=== PATIENT | male | born 1990 | race Caucasian/White ===

== ENCOUNTER 2016-12-24 22:15 | Emergency (ER) | payer OTHER ==
[~2016-12-24] VITALS: Ht 170.2 cm; Wt 70.0 kg
[2016-12-24 22:18] VITALS: BP 134/78; PULSE 68; RESP 16; TEMP 96.4; O2SAT 99
--- NOTE | 2016-12-24 23:01 | RADRPT ---
EXAM DATE/TIME: 12/24/2016 22:49 [place] COMPARISON: No previous studies available for comparison. INDICATIONS : Left anterior lateral chest pain, injured moving boxes MEDICAL HISTORY : None. SURGICAL HISTORY : None. ENCOUNTER: Initial ACUITY: 4 - 6 days PAIN SCORE: 4/10 LOCATION: Left chest FINDINGS: A single view of the chest demonstrates the lungs to be symmetrically aerated without evidence of mas s, infiltrate or effusion. No evidence of pneumothorax. The cardiomediastinal contours are unremark able. Osseous structures are intact.CONCLUSION: The lungs are clear. Lonny Fontenot MD on December 24, 2016 at 22:59 Board Certified Radiologist. This report was verified electronically.
[2016-12-25 00:30] VITALS: BP 126/60; PULSE 60; RESP 18; O2SAT 98
[2016-12-25 01:56] VITALS: BP 110/60; PULSE 84; RESP 18; O2SAT 98
--- NOTE | 2016-12-25 02:06 | PD ---
HPI Chief Complaint: Respiratory Symptoms Time Seen by Provider: 00:43 Travel History International Travel<30 days: No Contact w/Intl Traveler<30days: No Traveled to known affect area: No History of Present Illness HPI The patient is a 26 year old male who presents to the [facility] emergency department with a history of left-sided chest wall pain that he reports began on night. He reports that he did help a friend move and limited some heavy objects recently. He denies any specific trauma to the area. He reports that it makes him feel short of breath when he tries to take a deep breath. He reports that the pain is a mix between sharp, dull, and a burning sensation. He reports that it is constant although waxes and wanes in severity. He reports that walking or sitting makes it worse, lying back makes it better. He denies any acid reflux symptoms or heartburn. He denies any diaphoresis, radiation of pain, nausea, vomiting, or diarrhea. He denies any recent prolonged travel in a car or plane. He denies any lower extremity edema, calf pain, or erythema. The patient denies any recent fevers, cough, congestion, neck pain, abdominal pain, urinary symptoms, or neurologic symptoms. PFSH Past Medical History Narrative Medical The patient's past medical history is reportedly None. Medical History: Denies Significant Hx Diminished Hearing: No Tetanus Vaccination: < 5 Years Influenza Vaccination: No Past Surgical History Narrative Surgical Patient's past surgical history is reportedly None. Surgical History: No Previous Surgery Social History Alcohol Use: Yes (occasional) Tobacco Use: No Substance Use: No Allergies-Medications (Allergen,Severity, Reaction): Coded Allergies: Dust (Verified Allergy, Severe, 12/24/16) Reported Meds & Prescriptions Reported Meds & Active Scripts Active Naproxen EC (Naproxen) 500 Mg Tabdr 1 Tab PO Q12HR PRN Review of Systems Except as stated in HPI: all other systems reviewed are Neg General / Constitutional: No: Fever Eyes: No: Visual changes HENT: No: Headaches Cardiovascular: Positive: Chest Pain or Discomfort Respiratory: Positive: Shortness of Breath Gastrointestinal: No: Abdominal Pain Genitourinary: No: Dysuria Musculoskeletal: No: Pain Skin: No Rash Neurologic: No: Weakness Psychiatric: No: Depression Endocrine: No: Polydipsia Hematologic/Lymphatic: No: Easy Bruising Physical Exam Narrative General: The patient is a well-developed well-nourished male in no acute distress. Head and Neck exam: Head is normocephalic atraumatic. Eyes: EOMI, pupils are equal round and reactive to light. Nose: Midline septum with pink mucous membranes Mouth: Dentition unremarkable. Moist mucus membranes. Posterior oropharynx is not erythematous. No tonsillar hypertrophy. Uvula midline. Airway patent. Neck: No palpable lymphadenopathy. No nuchal rigidity. No thyromegaly. Cardiovascular: Regular rate and rhythm without murmurs, gallops, or rubs. No pulse deficit to the extremities and simultaneous auscultation and palpation of his radial artery. The patient has chest wall tenderness on palpation along the left lateral chest, along the anterior axillary line. There is no step-off or crepitus. No erythema or ecchymosis. Lungs: Clear to auscultation bilaterally. No wheezes, rhonchi, or rales. Abdomen: Soft, without tenderness to palpation in all 4 quadrants of the abdomen. No guarding, rebound, or rigidity. Normal bowel sounds are audible. No tenderness on palpation of McBurney's point. Negative [place] sign. Extremities: No clubbing, cyanosis, or edema. 2+ pulses in all 4 extremities. No calf tenderness on palpation. Back: No costovertebral angle tenderness to palpation. Neurologic Exam: Grossly nonfocal. Skin Exam: No rash noted. Intact skin that is warm and dry. Data Data Last Documented VS Vital Signs Date Time Temp Pulse Resp B/P Pulse Ox O2 Delivery O2 Flow Rate FiO2 12/25/16 01:56 84 18 110/60 98 12/25/16 00:30 Room Air 12/24/16 22:18 96.4 Orders Electrocardiogram (12/24/16 ) Chest, Single Ap (12/24/16 22:39) Ibuprofen (Motrin) (12/25/16 02:15) MDM Medical Decision Making Medical Screen Exam Complete: Yes Emergency Medical Condition: Yes Medical Record Reviewed: Yes Differential Diagnosis Pneumothorax, versus pneumonia, versus pulmonary embolism, versus musculoskeletal strain, versus rib fracture, versus acute coronary syndrome Narrative Course During the course of the patients emergency department visit, the patients history, examination, and differential diagnosis were reviewed with the patient. The patient had a chest x-ray, ECG ordered. The perc rule criteria identified the patient as low probability for pulmonary embolism. The patient was initially provided ibuprofen, however the patient reported that he would take this at home. The patient's EKG reveals a sinus rhythm, heart rate of 68, QRS duration 97 ms, QTC 309 ms, no acute ST segment elevation or depression, T waves inverted in V1. Radiology studies were reviewed and remarkable for a chest x-ray that shows no acute abnormality. The patient's symptoms are most consistent with a musculoskeletal origin of the chest wall pain. The patient will be discharged home with an anti-inflammatory pain medication prescription. The patient is resting comfortably and feels better, is alert and in no distress. The patients results and examination findings were discussed with the patient. The repeat examination is unremarkable and benign. The history, exam, diagnostic testing, and current condition do not suggest any significant pathology to warrant further testing, continued ED treatment, admission, or surgical evaluation at this point. The vital signs have been stable. The patient does not have uncontrollable pain, intractable vomiting, or other significant symptoms. The patient's condition is stable and appropriate for discharge. The patient will pursue further outpatient evaluation with a primary care physician or other designated or consulting physician as indicated in the discharge instructions. The patient expressed understanding and was agreeable with this plan. Diagnosis Primary Impression: Chest wall pain Referrals: Primary Care Physician 3 days Patient Instructions: Chest Wall Pain (ED), General Instructions Med/Other Pt SpecificInfo: Prescription(s) given Scripts Naproxen EC 500 Mg Tabdr1 Tab PO Q12HR PRN (PAIN GREATER THAN 5) #10 Prov:Danielle Alcantar MD 12/25/16 Disposition: 01 DISCHARGE HOME Condition: Stable Danielle Alcantar MD Dec 25, 2016 02:06
[2016-12-25] MEDS ORDERED: IBUPROFEN 400 MG TAB PO ONE (02:15)
[2016-12-25] MEDS ORDERED: NAPR500T5 PO (02:27)
--- NOTE | 2016-12-25 11:16 | EKG ---
Date Performed: 12/24/2016 Time Performed: 22:43:41 PTAGE: 26 years EKG: Sinus rhythm POSSIBLE RIGHT VENTRICULAR CONDUCTION DELAY BORDERLINE ECG NO PREVIOUS TRACING DOCTOR: Dannie Alcantar Interpretating Date/Time 12/25/2016 11:14:26
== END 2016-12-25 03:15 | disposition home or self-care (01) ==
LOC: NEPE 22:15
DX: R07.89 Other chest pain (principal); R06.02 Shortness of breath
CPT/HCPCS: 71010; 93005; 99284

== ENCOUNTER 2017-01-20 13:45 | Emergency (ER) | payer OTHER ==
[~2017-01-20] VITALS: Ht 170.2 cm; Wt 70.0 kg
[~2017-01-20 13:45] MED LIST: NAPR500T5 PO
[2017-01-20 13:47] VITALS: BP 129/84; PULSE 64; RESP 15; TEMP 98.2; O2SAT 98
[2017-01-20 14:16] LABS: BLOOD, URINE NEG (NEG); COMMENT (UR) CULT NOT INDICATED; CULTURE IF INDICATED CULT NOT INDICATED; GLUCOSE,URINE NEG (NEG); KETONE, URINE NEG (NEG); MUCUS URINE FEW /lpf (OCC); NITRITE,URINE NEG (NEG); PH, URINE 7.5 (5.0-8.5); URINE COLOR YELLOW (YELLW/STRAW)
[2017-01-20] MEDS ORDERED: LIDOCAINE HCL 1% 50 ML VIAL XX ONE (14:45)
[2017-01-20] MEDS ORDERED: cefTRIAXone 250 MG VIAL IM ONE (14:45)
[2017-01-20] MEDS ORDERED: AZITHROMYCIN 250 MG TAB PO ONE (14:45)
--- NOTE | 2017-01-20 14:47 | PD ---
HPI Chief Complaint: Complaint Time Seen by Provider: 14:43 Travel History International Travel<30 days: No Contact w/Intl Traveler<30days: No Traveled to known affect area: No History of Present Illness HPI 26-year-old male presents to the emergency department for evaluation of pain at distal tip of penis after unprotected intercourse. The patient states that he' s had a slight burning pain with a very small bump at the tip of his penis that began yesterday. States that he engaged in the unprotected intercourse 3 days ago. He denies any burning with urination, painful urination, hematuria, testicular pain, penile discharge, fever, chills, nausea, vomiting, abdominal pain. No other complaints. PFSH Past Medical History Medical History: Denies Significant Hx Diminished Hearing: No Social History Alcohol Use: Yes (occasional) Tobacco Use: No Substance Use: No Allergies-Medications (Allergen,Severity, Reaction): Coded Allergies: Dust (Verified Allergy, Severe, 12/24/16) Reported Meds & Prescriptions Reported Meds & Active Scripts Active Acyclovir 200 Mg Cap 200 Mg PO 5 TIMES A DAY 10 Days Naproxen EC (Naproxen) 500 Mg Tabdr 1 Tab PO Q12HR PRN Review of Systems Except as stated in HPI: all other systems reviewed are Neg Physical Exam Narrative GENERAL: Well-nourished and well-developed pleasant patient in no acute distress who is nontoxic appearing. SKIN: Warm and dry. HEAD: Normocephalic and atraumatic. EYES: No injection, drainage, or hyphema noted. PERRLA. EOMI. ENT: No nasal drainage noted. Oropharynx is clear. NECK: Supple and the trachea is midline. CARDIOVASCULAR: Regular rate and rhythm. RESPIRATORY: Breath sounds are equal bilaterally with no accessory muscle use, wheezing, rhonchi, or crackles. GASTROINTESTINAL: Abdomen is soft, non-tender, and nondistended. GENITOURINARY: Uncircumcised. There is a pinpoint erythematous lesion to left of external meatus. Testes descended bilaterally without evidence of rotation. No lesions or erythema. No urethral discharge. Performed in the presence of a RN. NEUROLOGICAL: Awake, alert, and oriented. Normal speech and gait. Cranial nerves are grossly intact. Data Data Last Documented VS Vital Signs Date Time Temp Pulse Resp B/P Pulse Ox O2 Delivery O2 Flow Rate FiO2 01/20/17 14:39 89 18 01/20/17 13:47 98.2 129/84 98 Orders Gc And Chlamydia Pcr (01/20/17 13:54) Urinalysis - C+S If Indicated (01/20/17 13:54) Ceftriaxone Inj (Rocephin Inj) (01/20/17 14:45) Lidocaine 1% Inj (50 Ml) (Xylocaine 1% I (01/20/17 14:45) Azithromycin (Zithromax) (01/20/17 14:45) Labs Laboratory Tests Test 01/20/17 14:00 Urine Color YELLOW Urine Turbidity CLEAR Urine pH 7.5 Urine Specific [place] 1.019 Urine Protein NEG mg/dL Urine Glucose (UA) NEG mg/dL Urine Ketones NEG mg/dL Urine Occult Blood NEG Urine Nitrite NEG Urine Bilirubin NEG Urine Urobilinogen LESS THAN 2.0 MG/DL Urine Leukocyte Esterase NEG Urine RBC 1 /hpf Urine WBC LESS THAN 1 /hpf Urine Mucus FEW /lpf Microscopic Urinalysis Comment CULT NOT INDICATED MDM Medical Decision Making Medical Screen Exam Complete: Yes Emergency Medical Condition: Yes Differential Diagnosis Ureteritis versus HSV versus irritation versus UTI Narrative Course 26-year-old male presents to the emergency department for evaluation of pain at distal tip of penis with pinpoint skin lesion that began after unprotected intercourse. Patient is afebrile, vital signs are stable. The lesion is very small and it is difficult to assume it is either genital herpes or any other sexual transmitted infection. Urinalysis is unremarkable. Gonorrhea and chlamydia is pending. Patient will be treated empirically with Rocephin 250 mg IM and Zithromax 1 g orally here in the ED. I have given him a prescription for acyclovir. I instructed the patient to wait 2 days and if his lesion has worsened or he has any more that arise he should begin taking the acyclovir. If his symptoms resolve or improve then he should not take this medication. Patient verbalizes understanding and agreement with treatment plan. Instructed to follow-up as an outpatient with [facility] or primary care. Diagnosis Primary Impression: Penile lesion Additional Impression: High risk sexual behavior Referrals: Primary Care Physician [facility] Dept. Patient Instructions: General Instructions Additional Instructions: Follow-up with the health department or your primary care physician for further STI testing. Return to the ED for any acute worsening of symptoms. Med/Other Pt SpecificInfo: Prescription(s) given Scripts Acyclovir 200 Mg [id number] Mg PO 5 TIMES A DAY 10 Days Ref 0 Prov:Kanchan Garces DO 01/20/17 Disposition: 01 DISCHARGE HOME Condition: Stable Gabi Jacobsen Jan 20, 2017 14:47
[2017-01-20] MEDS ORDERED: ACYC200C66 PO (14:57)
[2017-01-20 17:42] LABS: CHLAMYDIA PCR NOT DETECTED (NOT DETECT); NEISSERIA PCR NOT DETECTED (NOT DETECT)
== END 2017-01-20 15:09 | disposition home or self-care (01) ==
LOC: NEPD 13:45
DX: N48.9 Disorder of penis, unspecified (principal); Z72.51 High risk heterosexual behavior
CPT/HCPCS: 81001; 87491; 87591; 96372; 99284; J0696